=== PATIENT | female | born 1985 | race African-American/Black ===

== ENCOUNTER 2017-08-25 14:16 | Emergency (ER) | payer MEDICAID, OTHER ==
[~2017-08-25] VITALS: Ht 157.5 cm; Wt 59.0 kg
[2017-08-25] MEDS ORDERED: IBUPROFEN 400MG TABLET PO ONE (17:30)
[2017-08-25 18:05] VITALS: BP 128/88
== END 2017-08-25 18:19 | disposition home or self-care (01) ==
LOC: ER 14:33
DX: N61.1 Abscess of the breast and nipple (principal); N64.4 Mastodynia; R03.0 Elevated blood-pressure reading, without diagnosis of hypertension
CPT/HCPCS: 99283

== ENCOUNTER 2018-04-12 15:24 | Inpatient (IN) | payer MEDICAID ==
[~2018-04-12] VITALS: Ht 157.5 cm; Wt 45.4 kg
[2018-04-12] MEDS ORDERED: MORPHINE SULFATE 4 MG/ML CPJ (NOT FOR IM USE) IV STA (17:58)
[2018-04-12] MEDS ORDERED: ONDANSETRON HCL 4MG/2ML INJ IV STA (17:58)
[2018-04-12] MEDS ORDERED: DIPHENHYDRAMINE 50MG/ML VIAL IV ONE (18:15)
[2018-04-12 19:23] LABS: HEMATOCRIT. 28.9 % (36.0-48.0); MEAN CORPUSCULAR HEMOGLOBIN 28.4 pg (28.0-32.0); MEAN PLATELET VOLUME 8.9 fl (7.4-10.4); PLATELET 131 x1000/uL (130-400); RED BLOOD CELL COUNT 3.18 mill/uL (4.2-5.4); RED CELL DISTRIBUTION WIDTH 21.7 % (11.6-14.6)
[2018-04-12 19:30] LABS: INR 1.1; PARTIAL THROMBOPLASTIN TIME 26.8 sec (23.4-31.0); PROTHROMBIN TIME 10.8 sec (9.1-11.1)
[2018-04-12 19:31] LABS: CHLORIDE 98 mEq/L (98-107)
[2018-04-12 19:35] LABS: ETHANOL BLOOD < 10 mg/dL
[2018-04-12 19:38] LABS: CLARITY URINE CLOUDY (CLEAR); COLOR URINE AMBER (YELLOW); KETONES URINE TRACE (NEGATIVE); LEUKOCYTE ESTERASE URINE 1+ (NEGATIVE); NITRITE URINE POSITIVE (NEGATIVE); OCCULT BLOOD URINE NEGATIVE (NEGATIVE); PH URINE 5.5 (4.5-8.0); PROTEIN URINE 1+ (NEGATIVE); SPECIFIC GRAVITY URINE 1.029 (1.005-1.030)
[2018-04-12 19:47] LABS: *AMPHETAMINES SCREEN URINE NEGATIVE (NEGATIVE); *BARBITURATES SCREEN URINE NEGATIVE (NEGATIVE)
[2018-04-12 19:48] LABS: *BENZODIAZEPINES SCREEN URINE NEGATIVE (NEGATIVE); *COCAINE SCREEN URINE NEGATIVE (NEGATIVE); METHADONE URINE SCREEN NEGATIVE (NEGATIVE); OPIATES URINE SCREEN NEGATIVE (NEGATIVE); PHENCYCLIDINE URINE SCREEN NEGATIVE (NEGATIVE)
[2018-04-12 19:51] LABS: CANNABINOID URINE SCREEN PRESUMTIVE POSITIVE (NEGATIVE)
[2018-04-12] MEDS ORDERED: MAGNESIUM 2 G PREMIX 50 ML IV ONE (20:30)
[2018-04-12] MEDS ORDERED: LEVOFLOXACIN 500MG PREMIX 100 ML IV ONE (20:45)
[2018-04-12] MEDS ORDERED: SODIUM CHLORIDE 0.9% 1,000 ML IV ONE (21:23)
[2018-04-12] MEDS ORDERED: IOHEXOL-300 100 ML BOTTLE ONE (21:51)
[2018-04-12 21:58] LABS: PLATELET ESTIMATE NORMAL
[2018-04-12 22:07] LABS: AMMONIA 20 uMol/L (<32)
[2018-04-12 23:26] LABS: HEPATITIS B SURFACE ANTIGEN NEGATIVE
[2018-04-12 23:55] LABS: HEPATITIS B CORE AB IGM NEGATIVE
[2018-04-12 23:56] LABS: HEPATITIS A AB IGM NEGATIVE (NEGATIVE)
[2018-04-13] VITALS: BP 124/87
[2018-04-13] MEDS ORDERED: DIPHENHYDRAMINE 50MG/ML VIAL IV PRN (01:30)
[2018-04-13] MEDS: MORPHINE SULFATE 4 MG/ML CPJ (NOT FOR IM USE) IV PRN ×3 (02:18→20:56)
[2018-04-13] MEDS: MVI, ADULT NO.1 10 ML, THIAMINE HCL 100 MG, FOLIC ACID 1 MG in SODIUM CHLORIDE 0.9% 1,0... IV SCH ×4 (03:54)
[2018-04-13 04:00] VITALS: BP 124/85
[2018-04-13 07:30] LABS: HEMATOCRIT. 28.3 % (36.0-48.0); HEMOGLOBIN. 8.9 g/dL (12.0-16.0); MEAN CORPUSCULAR HEMOGLOBIN 28.7 pg (28.0-32.0); MEAN CORPUSCULAR VOLUME 91.4 fL (81.0-99.0); RED CELL DISTRIBUTION WIDTH 21.5 % (11.6-14.6)
[2018-04-13 07:40] LABS: CHLORIDE 100 mEq/L (98-107)
[2018-04-13 08:00] VITALS: BP 130/93
[2018-04-13 12:00] VITALS: BP 133/95
[2018-04-13] MEDS: HYDROXYZINE 25MG TABLET PO SCH ×2 (15:33→21:03)
[2018-04-13 16:00] VITALS: BP 133/92
[2018-04-13] MEDS ORDERED: ONDANSETRON HCL 4MG/2ML INJ IV PRN (16:00)
[2018-04-13] MEDS ORDERED: LACTULOSE 20G/30ML UDC PO PRN (16:00)
[2018-04-13] MEDS: DOCUSATE SODIUM 250MG CAPSULE PO SCH (16:47)
[2018-04-13] MEDS: LEVOFLOXACIN 500MG PREMIX 100 ML IV SCH (20:56)
[2018-04-13] MEDS: CHLORDIAZEPOXIDE 25MG CAPSULE PO SCH (21:03)
[2018-04-14] VITALS (7 sets, daily range): BP systolic 102–159; BP diastolic 67–99
[2018-04-14] MEDS: CHLORDIAZEPOXIDE 25MG CAPSULE PO SCH ×3 (05:07→21:36)
[2018-04-14] MEDS: HYDROXYZINE 25MG TABLET PO SCH ×3 (05:07→21:36)
[2018-04-14 06:29] LABS: HEMATOCRIT. 24.6 % (36.0-48.0); HEMOGLOBIN. 7.9 g/dL (12.0-16.0); MEAN CORPUSCULAR HEMOGLOBIN 29.3 pg (28.0-32.0); MEAN CORPUSCULAR VOLUME 91.2 fL (81.0-99.0); RED CELL DISTRIBUTION WIDTH 21.9 % (11.6-14.6)
[2018-04-14 06:37] LABS: CHLORIDE 99 mEq/L (98-107)
[2018-04-14] MEDS ORDERED: THIAMINE HCL 100MG TABLET PO SCH (09:00)
[2018-04-14] MEDS ORDERED: FOLIC ACID 1MG TABLET PO SCH (09:00)
[2018-04-14 09:25] LABS: NUCLEATED RED BLOOD CELLS 1 /100 WBC
[2018-04-14] MEDS: DOCUSATE SODIUM 250MG CAPSULE PO SCH (09:26)
[2018-04-14] MEDS: MVI, ADULT NO.1 10 ML, THIAMINE HCL 100 MG, FOLIC ACID 1 MG in SODIUM CHLORIDE 0.9% 1,0... IV SCH ×4 (11:05)
[2018-04-14] MEDS ORDERED: LIDOCAINE HCL/EPINEPHRINE 1%-EPI 1:100,000 30 ML VIAL INFIL SCH (15:30)
[2018-04-14 17:16] LABS: TOTAL IRON BINDING CAPACITY 280 ug/dL (250-450)
[2018-04-14] MEDS: MORPHINE SULFATE 4 MG/ML CPJ (NOT FOR IM USE) IV PRN (21:36)
[2018-04-14] MEDS: LEVOFLOXACIN 500MG PREMIX 100 ML IV SCH (21:37)
[2018-04-15] VITALS: BP 106/71
[2018-04-15 04:00] VITALS: BP 116/80
[2018-04-15 07:34] VITALS: BP 116/76
[2018-04-15 07:47] LABS: HEMOGLOBIN. 7.3 g/dL (12.0-16.0); MEAN CORPUSCULAR VOLUME 90.9 fL (81.0-99.0); MEAN PLATELET VOLUME 8.9 fl (7.4-10.4); RED BLOOD CELL COUNT 2.42 mill/uL (4.2-5.4); RED CELL DISTRIBUTION WIDTH 21.4 % (11.6-14.6)
[2018-04-15 08:41] LABS: CHLORIDE 105 mEq/L (98-107)
[2018-04-15 08:59] LABS: C REACTIVE PROTEIN QUANT 2.8 mg/L (0.0-3.0)
[2018-04-15] MEDS: CHLORDIAZEPOXIDE 25MG CAPSULE PO SCH ×3 (09:23→21:44)
[2018-04-15] MEDS: DOCUSATE SODIUM 250MG CAPSULE PO SCH (09:23)
[2018-04-15] MEDS: MVI, ADULT NO.1 10 ML, THIAMINE HCL 100 MG, FOLIC ACID 1 MG in SODIUM CHLORIDE 0.9% 1,0... IV SCH ×4 (09:23)
[2018-04-15] MEDS: HYDROXYZINE 25MG TABLET PO SCH ×3 (09:23→21:30)
[2018-04-15] MEDS: MORPHINE SULFATE 4 MG/ML CPJ (NOT FOR IM USE) IV PRN ×2 (09:40→21:45)
[2018-04-15 12:00] VITALS: BP 126/84
[2018-04-15 13:04] LABS: PLATELET 104 x1000/uL (130-400)
[2018-04-15 13:07] LABS: PLATELET ESTIMATE NORMAL
[2018-04-15] MEDS ORDERED: HYDROCODONE/ACETAMINOPHEN 5/325MG TABLET PO PRN (13:30)
[2018-04-15] MEDS ORDERED: ACETAMINOPHEN 325MG TABLET PO PRN (13:30)
[2018-04-15 16:00] VITALS: BP 124/84
[2018-04-15] MEDS: FERROUS SULFATE 325MG TABLET PO SCH (16:34)
[2018-04-15 20:00] VITALS: BP 129/86
[2018-04-15] MEDS: LEVOFLOXACIN 500MG PREMIX 100 ML IV SCH (21:30)
[2018-04-15 21:40] LABS: CLARITY URINE CLEAR (CLEAR); COLOR URINE YELLOW (YELLOW); KETONES URINE NEGATIVE (NEGATIVE); LEUKOCYTE ESTERASE URINE TRACE (NEGATIVE); NITRITE URINE NEGATIVE (NEGATIVE); OCCULT BLOOD URINE NEGATIVE (NEGATIVE); PH URINE 7.5 (4.5-8.0); PROTEIN URINE NEGATIVE (NEGATIVE); SPECIFIC GRAVITY URINE 1.016 (1.005-1.030)
[2018-04-16] VITALS (7 sets, daily range): BP systolic 109–129; BP diastolic 71–92
[2018-04-16] MEDS: CHLORDIAZEPOXIDE 25MG CAPSULE PO SCH ×2 (05:17→13:19)
[2018-04-16] MEDS: HYDROXYZINE 25MG TABLET PO SCH ×2 (05:17→13:19)
[2018-04-16] MEDS: MORPHINE SULFATE 4 MG/ML CPJ (NOT FOR IM USE) IV PRN (05:26)
[2018-04-16 07:17] LABS: HEMATOCRIT. 22.2 % (36.0-48.0); HEMOGLOBIN. 7.2 g/dL (12.0-16.0); MEAN CORPUSCULAR HEMOGLOBIN 29.5 pg (28.0-32.0); MEAN CORPUSCULAR VOLUME 90.8 fL (81.0-99.0); RED BLOOD CELL COUNT 2.45 mill/uL (4.2-5.4); RED CELL DISTRIBUTION WIDTH 21.5 % (11.6-14.6)
[2018-04-16 07:36] LABS: CHLORIDE 105 mEq/L (98-107)
[2018-04-16] MEDS: DOCUSATE SODIUM 250MG CAPSULE PO SCH (07:38)
[2018-04-16] MEDS: FERROUS SULFATE 325MG TABLET PO SCH ×3 (07:38→17:40)
[2018-04-16 08:19] LABS: HIV SCREEN 4G Non Reactive (Non Reactive)
[2018-04-16] MEDS: MVI, ADULT NO.1 10 ML, THIAMINE HCL 100 MG, FOLIC ACID 1 MG in SODIUM CHLORIDE 0.9% 1,0... IV SCH ×4 (08:56)
[2018-04-16 11:06] LABS: NUCLEATED RED BLOOD CELLS 2 /100 WBC
== END 2018-04-16 20:15 | disposition home or self-care (01) | DRG 720 ==
LOC: ER 16:47 → 8WST 20:38 → EDBEDREQTM 21:04 → EDBEDREQ 21:04 → EDBEDREQSVC 21:04 → ENRESERV 22:02
PROVIDERS: ADMIT Internal Medicine; ATTEND Internal Medicine
PROC: 0HB7XZX Excision of Abdomen Skin, External Approach, Diagnostic (ICD-10-PCS; principal; 2018-04-15)
DX: A41.9 Sepsis, unspecified organism (principal); E44.0 Moderate protein-calorie malnutrition; K76.0 Fatty (change of) liver, not elsewhere classified; D64.9 Anemia, unspecified; B89 Unspecified parasitic disease; F10.10 Alcohol abuse, uncomplicated; F12.90 Cannabis use, unspecified, uncomplicated; F17.210 Nicotine dependence, cigarettes, uncomplicated; K59.00 Constipation, unspecified; N39.0 Urinary tract infection, site not specified; L30.9 Dermatitis, unspecified; Z68.1 Body mass index [BMI] 19.9 or less, adult; Z98.891 History of uterine scar from previous surgery; Z71.6 Tobacco abuse counseling; Z88.0 Allergy status to penicillin
CPT/HCPCS: 36415; 71045; 74177; 76705; 80048; 80053; 80305; 81003; 82140; 82270; 82728; 82962; 83540; 83550; 83605; 83690; 83735; 83880; 84484; 85025; 85610; 85651; 85730; 86038; 86140; 86592; 86705; 86709; 86803; 86850; 86900; 87040; 87086; 87340; 87389; 88305; 93005; 96365; 96375; 99291; C1893; G0482; J1200; J1956; J2270; J2405; J3411; J3475; J3490; J7030; Q9967

== ENCOUNTER 2020-01-02 02:47 | Emergency (ER) | payer MEDICAID ==
[~2020-01-02] VITALS: Ht 157.5 cm; Wt 55.0 kg
[2020-01-02 05:03] VITALS: BP 135/72
== END 2020-01-02 05:03 | disposition home or self-care (01) ==
LOC: ER 02:47
DX: L30.9 Dermatitis, unspecified (principal); L85.3 Xerosis cutis; I10 Essential (primary) hypertension; Z88.0 Allergy status to penicillin
CPT/HCPCS: 99282